=== PATIENT | female | born 1930 | race Caucasian/White ===

== ENCOUNTER 2017-12-30 15:51 | Inpatient (IN) | payer OTHER ==
[2017-12-30] VITALS (24 sets, daily range): BP systolic 75–140; BP diastolic 28–103
[~2017-12-30] VITALS: Ht 165.1 cm; Wt 107.9 kg
--- NOTE | ~2017-12-30 | EKG ---
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
--- NOTE | ~2017-12-30 | HC ---
[facility] [place] [address] CONSULTATION Name: SALUD BERGMAN Room #: 242-P [facility] IN M.R.#: [id number] Admission: 12/30/17 Attend Phys: Ludin Roberts MD Discharge: Date of : 31 Report #: [id number] THIS REPORT FOR: //name// CC: Ludin Roberts DATE OF SERVICE: 12/30/2017 NEPHROLOGY CONSULTATION REASON FOR CONSULTATION: Hyponatremia, severe. HISTORY OF PRESENT ILLNESS: This is an 87-year-old female who we are asked to see after she presented to the Emergency Room earlier today. She complains of weakness that she says has been going on for some time, more severe over the last few days, but prior to coming on, for several weeks. Few days ago, she felt dizzy and had a fall. She says her back has been sore since that time. No apparent loss of consciousness. She is a mildly difficult historian as I think she is a bit uncertain of some of her symptoms. She did not appear to have any actual loss of consciousness. She says her appetite has been down. She has not been eating much. She ate maybe a little bit yesterday of a frozen TV dinner. She was told recently to increase her fluid intake because there was concern over her kidney related labs as she has been drinking more water than normal. She denies edema. She says she has no trouble passing urine. Her medication list is as reviewed below. She denies any history of any heart trouble, liver trouble or kidney trouble. She is unaware of prior evidence of hyponatremia. PAST MEDICAL HISTORY: She has had some hyperlipidemia and has been on multiple meds as noted below. She also has had some hyperlipidemia. She has had a tonsillectomy and appendectomy, umbilical hernia repair and a couple of breast biopsies, which were benign. MEDICATIONS: On admission included valsartan with hydrochlorothiazide 320/25 mg daily, furosemide 40 mg twice daily, although it is listed as only once daily, metoprolol 50 mg daily, aspirin 81 mg daily, simvastatin 40 mg daily, amlodipine 5 mg daily, albuterol and multivitamin. In addition, she states that since she fell and had a sore back, she has been taking Aleve 2 tablets twice daily over the past 3-4 days. ALLERGIES: LISTED TO CONTRAST. FAMILY HISTORY: Noncontributory in this 87-year-old female. SOCIAL HISTORY: The patient is a , lives in [place], [place]. She is retired. She lives in a house by herself and takes care of all of her usual daily needs, [place], [place] [address] CONSULTATION Name: SALUD BERGMAN Room #: 242-P [facility] IN M.R.#: [id number] Admission: 12/30/17 Attend Phys: Ludin Roberts MD Discharge: Date of : 31 Report #: [id number] REVIEW OF SYSTEMS: Has been generally weak, dizzy at times, but she denies any syncope. She denies dyspnea, cough, chest pain or palpitations. She has had some mild nausea. Appetite has been down. No diarrhea. No difficulty voiding urine. She says she ate since she got to the ICU and actually, that was good, taste is okay and she did well with that. She has been drinking extra fluid as noted above. She denies visual or hearing changes. PHYSICAL EXAMINATION: GENERAL: Elderly appearing female seen in the Intensive Care Unit. She is awake and responsive, participates readily in the interview and exam. VITAL SIGNS: Blood pressure on original presentation to the Emergency Room 127/54 with a heart rate of 81, temperature 97.0, oxygen saturation 94%. Current blood pressure 118/73 with a heart rate of 100 and it appears to be sinus on the monitor. HEENT: Shows pupils are 3 mm and reactive. Sclerae nonicteric. Oral mucosa is moist, no lesions. NECK: Supple without adenopathy, thyromegaly, JVD or bruit. CHEST: Fairly clear bilaterally. HEART: Regular rate and rhythm. ABDOMEN: Somewhat obese, has a few bowel sounds present. It is soft, nontender, nondistended. No organomegaly or masses are palpable. EXTREMITIES: Show no peripheral edema. She has 1+ peripheral pulses. I reviewed her chest x-ray and it looks like she has an elevated right hemidiaphragm. No infiltrates. No signs of heart failure or vascular redistribution. LABORATORY DATA: Sodium 103, potassium 2.5, chloride 71, bicarbonate 26, BUN 24, creatinine 1.1, glucose 140, calcium 8.8. Troponin less than 0.04. White count 17.5, hemoglobin 12.7, hematocrit 35.5 and platelets 309,000. Differential on the white count 86 neutrophils, 8 lymphs, 6 monos. TSH 0.24. Urinalysis specific gravity 1.010, pH of 5.5, 1+ ketones, 3+ blood. On microscopic exam, 3-10 red cells, otherwise negative. Urine osmolality is pending. ASSESSMENT: 1. Hyponatremia, severe. Remarkably in discussing with her and examining her, she is very with-it and shows no severe mental status changes. She slowly has been symptomatic over the recent days and weeks, and I would suggest that this is a more chronic hyponatremia and will need to be very careful in correcting it and making sure we go to slow rate. Has a very mixed bag of findings and she certainly has multifactorial contributors. In looking back at her old labs, she ran some serum sodium years ago of 131 suggesting she certainly has had some chronic underlying hyponatremia. She is on 2 different diuretics with hydrochlorothiazide and furosemide, she has been taking large amounts of extra water, she has had decreased intake of salt recently as she has not been eating [facility] [address] [place] [address] CONSULTATION Name: SALUD BERGMAN Room #: [facility] ADM IN M.R.#: [id number] Admission: 12/30/17 Attend Phys: Ludin Roberts MD Discharge: Date of : 31 Report #: [id number] much. At the same time over the last few days, she has put herself on Aleve in a substantial amount, so I expect this is all contributing. At this point, she is fairly euvolemic. I do not see signs of volume overload. We will have to double check on her thyroid status. The main point at this time is we will continue some normal saline for slow gradual correction. We want to avoid rapid correction to avoid any osmotic demyelinating syndrome. As long as she does not have any neurologic changes, we will need to start hypertonic saline. If she does start showing neurologic changes, that would be a consideration. Nevertheless, we will want to correct this at only 6-8 mEq per liter per 24 hours. 2. Hypotension. Chronically hypertensive and in fact is on 5 different antihypertensives at home, but that list is correct. She is on the low side today. We will hold all of her antihypertensives and see how she reacts. 3. Low thyroid-stimulating hormone suggesting potential for hyperthyroidism, but we will need to recheck those numbers including the T4. PLAN: 1. At this point, I will continue her on normal saline at 100 mL an hour. 2. We need to recheck labs as it has been a number of hours since they were checked and she has been on some therapy. Again, we will want very gradual correction over time. 3. We will closely monitor her situation and follow along with care. <ELECTRONICALLY SIGNED> By: Alexsander Tyler MD 12/31/17 1046 2134 0247 Herrera Aguiar MD /nt
[~2017-12-30 15:51] MED LIST: ACETAMINOPHEN-1 EAC1 PO; APAP650 PO; ASPIRIN EC81 M1 PO; CENTRUM SILVER1 EAC4 PO; HYDROCODON-ACE1 EAC7 PO; HYDROCODONE-AP1 EAC6 PO; IBUPROFEN 600600 M1 PO; IBUPROFEN200 M2 PO; NABUMETONE 500500 M1 PO; NORVASC 5 MG TAB5 MG PO; PROAIR HFA8.5 GM IH; RELAFEN500 MG PO; SIMVASTATIN40 MG PO; TEKTURNA HCT 31 EAC1 PO; TOPROL XL100 MG PO; TRAMADOL 50 MG50 MG PO; VALSARTAN-HCTZ1 EAC3 PO; VITAMIN D400 UNI1 PO; VITAMINC500 PO
[2017-12-30 16:25] LABS: BASOPHILS 0.1 % (0.0-2.0); HEMATOCRIT 35.5 % (37.0-47.0); HEMOGLOBIN 12.7 gm/dL (12.0-15.0); LYMPHOCYTES 7.6 % (24.0-44.0); MCH 31.1 pg (26.0-34.0); MCHC 35.8 g/dL (28.0-37.0); MCV 86.9 fL (80.0-100.0); MONOCYTES 6.5 % (1.0-8.0); PLATELET COUNT 309 thou/uL (150-400); POLYS 85.8 % (36.0-66.0); RBC 4.09 mil/uL (4.20-5.00); RDW 12.2 % (10.5-14.5); WBC 17.5 thou/uL (4.0-11.0)
[2017-12-30 16:30] LABS: BUN 24 mg/dL (7-18); CALCIUM 8.8 mg/dL (8.5-10.1); CHLORIDE 71 mmol/L (98-107); CO2 26 mmol/L (21-32); CREATININE 1.1 mg/dL (0.6-1.0); GLUCOSE 140 mg/dL (74-106); TROPONIN-I < 0.04 ng/mL (<0.06)
[2017-12-30 16:31] LABS: ANION GAP 6 mmol/L (7-16)
[2017-12-30 16:34] LABS: SODIUM 103 mmol/L (136-145)
[2017-12-30 16:35] LABS: POTASSIUM 2.5 mmol/L (3.5-5.1)
[2017-12-30 17:19] LABS: URINE BILIRUBIN NEGATIVE (Negative); URINE BLOOD 3+ (Negative); URINE CLARITY CLEAR; URINE COLOR YELLOW; URINE GLUCOSE-RANDOM* NEGATIVE (Negative); URINE KETONES 1+ (Negative); URINE LEUKOCYTES-REFLEX NEGATIVE (Negative); URINE NITRITE-REFLEX NEGATIVE (Negative); URINE PROTEIN (DIPSTICK) NEGATIVE (Negative); URINE UROBILINOGEN 0.2 E.U./dl (0.2-1.0)
[2017-12-30 17:23] LABS: SQUAMOUS 0-3 Few /LPF (0-3)
[2017-12-30 17:24] LABS: BACTERIA-REFLEX None Seen /HPF (None Seen); CASTS None Seen /LPF (None Seen); CRYSTALS None Seen /LPF (None Seen); URINE RBC 3-10 Few /HPF (0-2); URINE WBC-REFLEX None Seen /HPF (0-5)
[2017-12-30] MEDS ORDERED: LASIX 40 MG TAB40 M2 PO (17:31)
[2017-12-30 21:30] LABS: CALCIUM 8.3 mg/dL (8.5-10.1); CREATININE 0.9 mg/dL (0.6-1.0)
[2017-12-30 21:32] LABS: POTASSIUM 2.9 mmol/L (3.5-5.1)
[2017-12-31] VITALS (35 sets, daily range): BP systolic 60–147; BP diastolic 34–97
[2017-12-31 07:48] LABS: CALCIUM 8.4 mg/dL (8.5-10.1); CREATININE 0.9 mg/dL (0.6-1.0)
[2017-12-31 07:49] LABS: POTASSIUM 4.1 mmol/L (3.5-5.1)
[2018-01-01] VITALS (20 sets, daily range): BP systolic 74–138; BP diastolic 45–87
[2018-01-01 04:50] LABS: ALBUMIN 2.5 g/dL (3.4-5.0); CALCIUM 8.4 mg/dL (8.5-10.1); PHOSPHORUS 1.7 mg/dL (2.5-4.9); POTASSIUM 4.1 mmol/L (3.5-5.1)
[2018-01-02 00:27] VITALS: BP 116/59
[2018-01-02 03:40] VITALS: BP 113/49
[2018-01-02 04:13] LABS: ALBUMIN 2.6 g/dL (3.4-5.0); CALCIUM 8.7 mg/dL (8.5-10.1); CREATININE 0.9 mg/dL (0.6-1.0); PHOSPHORUS 2.2 mg/dL (2.5-4.9); POTASSIUM 4.8 mmol/L (3.5-5.1)
[2018-01-02 07:52] VITALS: BP 112/73
[2018-01-02 12:00] VITALS: BP 115/80
[2018-01-02 18:13] VITALS: BP 132/61
[2018-01-02 19:20] VITALS: BP 142/68
[2018-01-03 03:35] VITALS: BP 127/75
[2018-01-03 06:15] LABS: ALBUMIN 2.5 g/dL (3.4-5.0); CREATININE 0.8 mg/dL (0.6-1.0); POTASSIUM 4.7 mmol/L (3.5-5.1)
[2018-01-03 08:02] VITALS: BP 110/73
[2018-01-03 10:07] VITALS: BP 110/73
[2018-01-03 10:52] VITALS: BP 110/73
[2018-01-03 10:55] VITALS: BP 110/73
== END 2018-01-03 12:52 | disposition home health service (06) | DRG 682 ==
LOC: ER 15:51 → EROBS 17:31 → ICU 17:31 → 3W 01-01 18:15
PROVIDERS: Family Medicine; Hospitalist; Internal Medicine Nephrology; Physician Assistant
DX: N17.9 Acute kidney failure, unspecified (principal); E43 Unspecified severe protein-calorie malnutrition; E87.1 Hypo-osmolality and hyponatremia; R53.81 Other malaise; I10 Essential (primary) hypertension; M17.9 Osteoarthritis of knee, unspecified; E83.39 Other disorders of phosphorus metabolism; E78.5 Hyperlipidemia, unspecified; K21.9 Gastro-esophageal reflux disease without esophagitis; I95.9 Hypotension, unspecified; E03.9 Hypothyroidism, unspecified; E78.00 Pure hypercholesterolemia, unspecified; E87.6 Hypokalemia; D72.829 Elevated white blood cell count, unspecified; Z91.041 Radiographic dye allergy status; Z79.82 Long term (current) use of aspirin; Z79.899 Other long term (current) drug therapy
CPT/HCPCS: 10078; 10779

== ENCOUNTER 2018-01-09 15:37 | Inpatient (IN) | payer OTHER ==
[~2018-01-09] VITALS: Ht 165.1 cm; Wt 104.3 kg
--- NOTE | ~2018-01-09 | EKG ---
[place] [address] [address] 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
--- NOTE | ~2018-01-09 | 2DMMODE ---
[facility] [place] [address] 2 D/M-MODE ECHOCARDIOGRAM Name: SALUD BERGMAN Room #: 420-P [facility] IN ..#: [id number] Admission: 01/09/18 Attend Phys: Ludin Roberts, Discharge: Date of : 32 Date of Service: 01/18/18 1103 Report #: [id number] THIS REPORT FOR: //name// APPROVED REPORT Study performed: 01/18/2018 09:49:59 EXAM: Comprehensive 2D, Doppler, and color-flow Echocardiogram Patient Location: Bedside Room #: 420 Status: routine BSA: 2.10 HR: 80 bpm BP: 151/71 mmHg Other Information Study Quality: Adequate Indications Hypertension/HDD 2D Dimensions IVC: 2.10 mm Volumes Left Atrial Volume (Systole) Single Plane 4CH: 44.00 mL Single Plane 2CH: 96.45 mL LA ESV Index: 30.00 mL/m2 Aortic Valve AoV Peak Yogi.: 1.84 m/s AO Peak Gr.: 13.61 mmHg LVOT Max P.96 mmHg LVOT Max V: 1.32 m/s Mitral Valve E/A Ratio: 0.8 MV Decel. Time: 147.80 ms MV E Max Yogi.: 0.87 m/s MV A Yogi.: 1.05 m/s MV PHT: 42.86 ms IVRT: 83.04 ms Pulmonary Vein P Vein S: 0.58 m/s P Vein A: 0.29 m/s P Vein D: 0.53 m/s P Vein A Dur.: 147.6 msec [facility] [address] [place] [address] 2 D/M-MODE ECHOCARDIOGRAM Name: SALUD BERGMAN Room #: 420-P [facility] IN ..#: [id number] Admission: 01/09/18 Attend Phys: Ludin Roberts, Discharge: Date of : 32 Date of Service: 01/18/18 1103 Report #: [id number] P Vein S/D Ratio: 1.09 Tricuspid Valve TR Peak Yogi.: 2.91 m/s RAP Estimate: 10.00 mmHg TR Peak Gr.: 33.87 mmHg PA Pressure: 44.00 mmHg Left Ventricle The left ventricle is normal size. There is normal LV segmental wall motion. There is normal left ventricular wall thickness. The left ventricular systolic function is normal. The left ventricular ejection fraction is within the normal range. LVEF is 55%. The left ventricular diastolic function is normal for her age. Right Ventricle The right ventricle is normal size. The right ventricular systolic function is normal. Atria Left atrium is at the upper limits of normal. The right atrium size is normal. Aortic Valve The aortic valve is not well visualized. No aortic regurgitation is present. There is no aortic valvular stenosis. Mitral Valve The mitral valve is normal in structure. Mild mitral regurgitation. No evidence of mitral valve stenosis. Tricuspid Valve The tricuspid valve is normal in structure. There is trace tricuspid regurgitation. Estimated PAP is 44 mmHg. There is moderate pulmonary hypertension. Pulmonic Valve Pulmonic valve is not well visualized. There is no pulmonic valvular regurgitation. Great Vessels The aortic root is normal in size. IVC is dilated and collapses <50% with inspiration. Pericardium There is no pericardial effusion. [facility] [place] [address] 2 D/M-MODE ECHOCARDIOGRAM Name: SALUD BERGMAN Room #: 420-P [facility] IN .R.#: [id number] Admission: 01/09/18 Attend Phys: Ludin Roberts, Discharge: Date of : 32 Date of Service: 01/18/183 Report #: [id number] <Conclusion> The left ventricle is normal size. There is normal left ventricular wall thickness. The left ventricular systolic function is normal. The right ventricle is normal size. Left atrium is at the upper limits of normal. There is no aortic valvular stenosis. Mild mitral regurgitation. There is trace tricuspid regurgitation. Estimated PAP is 44 mmHg. <ELECTRONICALLY SIGNED> By: Maurilio Tay MD 01/18/18 1103 1103 1103 Maurilio Tay MD /ANNIA
--- NOTE | ~2018-01-09 | EKG ---
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 : 1930 Requested By: Paul Morton Order Number: [id number] MD: Bonilla Ortega Measurements Intervals [place] Rate: 127 P: [place]: QRS: 38 QRSD: 80 T: 19 QT: 295 QTc: 429 Interpretive Statements Atrial fibrillation Low voltage, precordial leads Minimal ST depression, inferior leads Compared to ECG 01/09/2018 15:44:40 Sinus tachycardia no longer present Electronically Signed On 01-17-2018 14:08:24 CDT by Bonilla Ortega [email or web address] <ELECTRONICALLY SIGNED> By: Bonilla Ortega MD, [facility] 01/17/18 1408 1824 182 Bonilla Ortega MD, [facility] /EPI
[~2018-01-09 15:37] MED LIST changes: +LASIX 40 MG TAB40 M2 PO
[2018-01-09 15:45] VITALS: BP 185/104
[2018-01-09] MEDS ORDERED: NORCO 5-325 TA1 EACH PO (15:53)
[2018-01-09 16:44] LABS: URINE BILIRUBIN NEGATIVE (Negative); URINE BLOOD NEGATIVE (Negative); URINE CLARITY CLEAR; URINE COLOR YELLOW; URINE GLUCOSE-RANDOM* NEGATIVE (Negative); URINE KETONES NEGATIVE (Negative); URINE LEUKOCYTES NEGATIVE (Negative); URINE NITRITE NEGATIVE (Negative); URINE PROTEIN (DIPSTICK) NEGATIVE (Negative); URINE SPECIFIC GRAVITY <= 1.005 (1.005-1.035); URINE UROBILINOGEN 0.2 E.U./dl (0.2-1.0)
[2018-01-09 16:44] LABS: ABSOLUTE NEUTROPHILS 11.7 thou/uL (1.4-8.2); BASOPHILS 0.6 % (0.0-2.0); EOSINOPHILS 0.2 % (0.0-3.0); HEMOGLOBIN 11.8 gm/dL (12.0-15.0); LYMPHOCYTES 10.8 % (24.0-44.0); MCH 31.1 pg (26.0-34.0); MCHC 34.6 g/dL (28.0-37.0); MCV 89.7 fL (80.0-100.0); MONOCYTES 6.4 % (1.0-8.0); PLATELET COUNT 342 thou/uL (150-400); RBC 3.79 mil/uL (4.20-5.00); RDW 13.3 % (10.5-14.5); WBC 14.3 thou/uL (4.0-11.0)
[2018-01-09 16:53] LABS: ANION GAP 7 mmol/L (7-16); BUN 13 mg/dL (7-18); CALCIUM 9.8 mg/dL (8.5-10.1); CHLORIDE 102 mmol/L (98-107); CO2 27 mmol/L (21-32); CREATININE 0.9 mg/dL (0.6-1.0); GLUCOSE 132 mg/dL (74-106); SODIUM 136 mmol/L (136-145)
[2018-01-09 17:01] LABS: TROPONIN-I <0.06 ng/mL (<0.06)
[2018-01-09 18:41] VITALS: BP 171/94
[2018-01-09 19:45] VITALS: BP 173/93
[2018-01-09 21:38] VITALS: BP 146/61
[2018-01-09 23:37] VITALS: BP 126/65
[2018-01-10 04:27] VITALS: BP 176/90
[2018-01-10 08:14] VITALS: BP 156/68
[2018-01-10 08:50] VITALS: BP 176/90
[2018-01-10 16:15] VITALS: BP 154/80
[2018-01-10 20:00] VITALS: BP 149/90
[2018-01-11 05:00] VITALS: BP 152/77
[2018-01-11 08:05] VITALS: BP 137/66
[2018-01-11 08:30] VITALS: BP 137/66
[2018-01-11 16:05] VITALS: BP 144/75
[2018-01-11 20:44] VITALS: BP 172/34
[2018-01-12 02:48] VITALS: BP 153/80
[2018-01-12 04:15] VITALS: BP 153/80
[2018-01-12 08:27] LABS: HEMATOCRIT 31.5 % (37.0-47.0); HEMOGLOBIN 11.1 gm/dL (12.0-15.0); MCH 31.7 pg (26.0-34.0); MCHC 35.3 g/dL (28.0-37.0); MCV 89.8 fL (80.0-100.0); RBC 3.5 mil/uL (4.20-5.00); RDW 13.3 % (10.5-14.5); WBC 9.7 thou/uL (4.0-11.0)
[2018-01-12 08:35] LABS: CALCIUM 9.7 mg/dL (8.5-10.1); CREATININE 0.7 mg/dL (0.6-1.0); POTASSIUM 3.5 mmol/L (3.5-5.1)
[2018-01-12 09:40] VITALS: BP 118/73
[2018-01-12 15:56] VITALS: BP 141/70
[2018-01-12 20:00] VITALS: BP 157/77
[2018-01-13 05:00] VITALS: BP 167/84
[2018-01-13 08:00] VITALS: BP 148/71
[2018-01-13 16:00] VITALS: BP 152/71
[2018-01-13 19:30] VITALS: BP 156/91
[2018-01-14 02:49] VITALS: BP 148/81
[2018-01-14 19:31] VITALS: BP 156/80
[2018-01-15 04:55] VITALS: BP 150/84
[2018-01-15 07:45] VITALS: BP 132/79
[2018-01-15 08:37] LABS: CALCIUM 9.2 mg/dL (8.5-10.1); CREATININE 0.9 mg/dL (0.6-1.0); POTASSIUM 3.6 mmol/L (3.5-5.1)
[2018-01-15 13:57] VITALS: BP 126/66
[2018-01-15 20:50] VITALS: BP 157/66
[2018-01-16 04:30] VITALS: BP 150/85
[2018-01-16 07:55] VITALS: BP 146/76
[2018-01-16 16:38] VITALS: BP 146/76
[2018-01-16] MEDS ORDERED: LOPRESSOR50 PO (17:23)
[2018-01-16 19:54] VITALS: BP 141/84
[2018-01-17 04:30] VITALS: BP 147/96
[2018-01-17 05:39] LABS: CALCIUM 9.4 mg/dL (8.5-10.1); CREATININE 0.8 mg/dL (0.6-1.0); POTASSIUM 4.2 mmol/L (3.5-5.1)
[2018-01-17 07:23] VITALS: BP 139/70
[2018-01-17] MEDS ORDERED: CARDIZEM60 MG PO (12:15)
[2018-01-17 19:46] VITALS: BP 126/69
[2018-01-18 03:47] VITALS: BP 151/71
[2018-01-18 08:25] VITALS: BP 140/75
== END 2018-01-18 16:06 | DRG 515 ==
LOC: ER 15:37 → 4E 18:07 → EROBS 18:07 → 4E 19:21
PROVIDERS: Emergency Medicine; Family Medicine; Hospitalist
PROC: 0PS43ZZ Reposition Thoracic Vertebra, Percutaneous Approach (ICD-10-PCS; principal; 2018-01-15)
PROC: 0PU43JZ Supplement Thoracic Vertebra with Synthetic Substitute, Percutaneous Approach (ICD-10-PCS; principal; 2018-01-15)
DX: M48.54XA Collapsed vertebra, not elsewhere classified, thoracic region, initial encounter for fracture (principal); I50.31 Acute diastolic (congestive) heart failure; E87.1 Hypo-osmolality and hyponatremia; I48.92 Unspecified atrial flutter; I10 Essential (primary) hypertension; E78.00 Pure hypercholesterolemia, unspecified; K21.9 Gastro-esophageal reflux disease without esophagitis; D72.829 Elevated white blood cell count, unspecified; K59.00 Constipation, unspecified; Z90.49 Acquired absence of other specified parts of digestive tract; I48.91 Unspecified atrial fibrillation; Z91.041 Radiographic dye allergy status; Z79.82 Long term (current) use of aspirin; Z79.899 Other long term (current) drug therapy; I11.0 Hypertensive heart disease with heart failure
CPT/HCPCS: 10183